=== PATIENT | male | born 1975 | race Caucasian/White ===

== ENCOUNTER 2016-07-27 11:52 | Emergency (ER) | payer OTHER ==
[2016-07-27 13:19] LABS: HEMOGLOBIN 14.6 gm/dl (14.0-17.5); RED BLOOD COUNT 5.01 M/UL (4.20-5.50)
[2016-07-27 13:25] LABS: WHITE BLOOD COUNT 29.8 K/UL (4.5-11.0)
[2016-07-27 14:33] LABS: HEMOGLOBIN 14.7 gm/dl (14.0-17.5); RED BLOOD COUNT 5.07 M/UL (4.20-5.50); WHITE BLOOD COUNT 26.9 K/UL (4.5-11.0)
[2016-07-27 15:05] LABS: BUN/CREATININE RATIO 20 (0-10)
== END 2016-07-27 15:45 | disposition home or self-care (01) ==
LOC: ER1 11:52
PROVIDERS: Nurse Practitioner Family
DX: M79.672 Pain in left foot (principal); M79.671 Pain in right foot; D72.829 Elevated white blood cell count, unspecified; T14.8 Other injury of unspecified body region; W57.XXXA Bitten or stung by nonvenomous insect and other nonvenomous arthropods, initial encounter; F17.210 Nicotine dependence, cigarettes, uncomplicated
CPT/HCPCS: 36415; 73610; 73630; 80053; 84550; 85025; 86140; 86618; 96372; 99284; J1100; J1885